=== PATIENT | female | born 1925 | race Caucasian/White ===

== ENCOUNTER → 2016-11-03 | Outpatient (CLI) | payer MEDICARE, MEDICAID ==
[~2016-11-03] MED LIST: ALBUTEROL SULF 2.5 MG/0.5ML(0.5%) NEB SOLN ONE; CARB1TAB63 PO; DONE5TAB11 PO; LEVO25TA6 PO; ROSU5TAB5 PO
== END | disposition home or self-care (01) ==
LOC: RT 09:03
PROVIDERS: ATTEND Internal Medicine Pulmonary Disease
DX: R06.09 Other forms of dyspnea (principal)
CPT/HCPCS: 94060; 94640